=== PATIENT | male | born 1975 | race Caucasian/White ===

== ENCOUNTER → 2021-11-14 06:54 | Outpatient (CLI) | payer OTHER, SELFPAY ==
--- NOTE | ~2021-11-14 | MR_ITS ---
EXAMINATION: MR lumbar spine wo con EXAM DATE: 11/14/2021 07:35 INDICATION: Low back pain TECHNIQUE: Multi-sequential, multiplanar MR images of the lumbar spine were obtained without contrast . Sagittal T1, T2, T2 fat saturation images. Axial T2 weighted images. There is no prior study for comparison. FINDINGS: There is posterior fusion at L4-5, moderate disc disease at this level. Mild disc disease a t L3-4 and L5-S1. L4 laminectomies. Paraspinal soft tissue is unremarkable. There are no suspicious m arrow signal abnormalities. There is 2-3 mm anterolisthesis L4 on L5. Level by level evaluation: T12-L1: Disc does not extend beyond the endplate margin. Facet arthropathy: None. Neural foraminal stenosis: No stenosis. Central canal stenosis: No stenosis. L1-L2: Disc does not extend beyond the endplate margin. Facet arthropathy: Mild. Neural foraminal stenosis: No stenosis. Central canal stenosis: No stenosis. L2-L3: Disc does not extend beyond the endplate margin. Facet arthropathy: Mild to moderate. Neural foraminal stenosis: No stenosis. Central canal stenosis: No stenosis. L3-L4: There is a moderate diffuse disc bulge. Facet arthropathy: Moderate. Neural foraminal stenosis: Moderate left, mild to moderate right. Central canal stenosis: Mild to moderate. L4-L5: There is a moderate diffuse disc bulge. Facet arthropathy: Moderate but fused. Neural foraminal stenosis: Moderate right, mild left. Central canal stenosis: Mild, posterior decompression. L5-S1: Disc does not extend beyond the endplate margin. Facet arthropathy: Mild to moderate. Neural foraminal stenosis: Mild bilateral. Central canal stenosis: No stenosis. IMPRESSION: 1. L4-5 posterior fusion, grade 1 anterolisthesis, moderate disc bulge and right neural foraminal st enosis. 2. Less spondylosis other levels. Reviewed, dictated and finalized at location B. [employer] IMPRESSION: 1. L4-5 posterior fusion, grade 1 anterolisthesis, moderate disc bulge and rig ht neural foraminal stenosis. 2. Less spondylosis other levels.
== END ==
PROVIDERS: PCP Internal Medicine; Visit Provider Internal Medicine
DX: M51.26 Other intervertebral disc displacement, lumbar region (principal); Z98.1 Arthrodesis status
CPT/HCPCS: 72148

== ENCOUNTER 2022-03-08 06:51 | Outpatient (CLI) | payer BC, SELFPAY ==
--- NOTE | 2022-03-02 14:40 | PC.NURSE ---
Pre Radiology instructions Report to the Outpatient Waiting Room, entrance under the green pavilion located off [facility], at time 0700 on date 03/08/22. Procedure Time: 0900. One visitor will be allowed to accompany the patient into the hospital. The visitor will be instructed to remain with patient at all times or leave the building. We will allow the visitor to come back to the postoperative area when patient is ready. You and your visitor will be asked a series of questions to screen for COVID 19 for your protection. A mask is required within the hospital. Patients are to have no food or drink 6 hours prior to procedure time Driving will be restricted after the procedure, you must have a person to drive you home. Labs will be drawn in preop area and once reviewed, you will be taken to radiology area for procedure. When the procedure is completed, you will be taken to outpatient where you will be monitored for several hours. You may have one visitor in this area. Other than holding anti-coagulants, patient may take other medication(s) as scheduled. Prior to your appointment date patients are instructed to hold anti-coagulants after discussing with ordering provider to stop. If unable to discontinue anti-coagulants please notify radiologist. No aspirin or warfarin (Coumadin) for 7 days prior to the procedure. No clopidogrel (Plavix), ticagrelor (Brilinta), prasugrel (Effient) or dabigatran (Pradaxa) for 5 days prior to the procedure. No rivaroxaban (Xarelto), apixaban (Eliquis), dipyridamole (Aggrenox or Persantine) or cilostazol (Pletal) for 2 days prior to the procedure. Medications to discontinue per physician: N/A Date to take last dose: N/A Please leave all valuables, including medications, at home the day of procedure. The hospital will not accept responsibility for valuables. Wear comfortable, loose fitting clothing. Follow any additional instructions given to you from ordering provider. Telephone instructions given to PRINCE YOUNG and asked if any additional questions and then verbalized understanding. Patient advised to call scheduling provider office or registration scheduling [phone] if any additional questions.
[2022-03-02 14:41] VITALS: BMI 39.6
[2022-03-08] VITALS (7 sets, daily range): BP systolic 120–135; BP diastolic 78–85; PULSE 54–86; RESP 12–14; TEMP 36.2; O2SAT 96–100; BMI 40.1
--- NOTE | ~2022-03-08 | XR_ITS ---
EXAMINATION: 1. CT lumbar spine w con 2. XR myelogram spine lumbosacral DATE: 03/08/2022 10:36 INDICATION: lumbar spine MRI 11/14/21 TECHNIQUE: The procedure including the risks, benefits, and alternatives was discussed with the patie nt. Risks discussed included spinal headache, bleeding, and infection. The patient understood the ris ks and agreed to proceed. A timeout was performed to verify the patient's name, date of , and procedure to be performed. The skin overlying the L2-L3 and L4 levels was prepped and draped in usu al sterile fashion. Subcutaneous 1% lidocaine was used for local anesthesia. A 22 gauge spinal need le was advanced under fluoroscopic guidance. The needle was removed and the entry site was cleaned an d dressed. There were no immediate complications. Fluoroscopy exposure time was 0.4 minutes. The tot al number of images was 9. Computed tomography (CT) of the lumbar spine was performed without intrave nous contrast. The dose-length product was 1206.07 mGy-cm. FINDINGS: XR MYELOGRAM SPINE LUMBAR: Real-time fluoroscopy demonstrates the needle at the L4 level. There are c hanges of posterior fusion procedure at L4-L5 with pedicle screws. There are indentations of the thec al sac that will be further described on the postmyelogram CT. POST-MYELOGRAM LUMBAR SPINE CT: There is a 3.1 cm cyst in left kidney. There is 3 mm anterolisthesis of L4 on L5. There are changes of posterior fusion procedure at L4-L5 with pedicle screws. There are lucencies around the right L4 screw and left L5 screw, consistent with loosening. There is moderately decreased disc height at L4-L5. The conus medullaris is at L1. The following disc levels are specifi jose luis discussed: L1-L2: The disc does not extend beyond the endplate margin. There is mild bilateral facet joint osteo arthritis. There is no neural foraminal stenosis. There is no central canal stenosis. L2-L3: The disc does not extend beyond the endplate margin. There is mild bilateral facet joint osteo arthritis. There is no neural foraminal stenosis. There is no central canal stenosis. L3-L4: The disc is bulging. There is mild bilateral facet joint osteoarthritis. There is mild bilater al neural foraminal stenosis. There is mild central canal stenosis. L4-L5: The disc is bulging. There is mild bilateral facet joint hypertrophy. There is moderate bilate ral neural foraminal stenosis. There is mild central canal stenosis. There is posterior decompression . L5-S1: The disc does not extend beyond the endplate margin. There is moderate bilateral facet joint o steoarthritis. There is no neural foraminal stenosis. There is no central canal stenosis. IMPRESSION: 1. Posterior fusion procedure at L4-L5 with lucency around the right L4 screw and left L5 screw, cons istent with loosening. 2. Moderate spondylosis at L4-L5 and mild spondylosis at other levels. Reviewed, dictated and finalized at location A. IMPRESSION: 1. Posterior fusion procedure at L4-L5 with lucency around the right L4 screw a nd left L5 screw, consistent with loosening. 2. Moderate spondylosis at L4-L5 and mild spondylosis at other levels.
[2022-03-08 07:36] LABS: Immature Platelet Fraction Pct 3.9 % (0.9-11.2); Platelet Count Result 155 k/mm3 (150-375)
[2022-03-08 07:59] LABS: Prothrombin Time 13.1 Seconds (11.1-14.7)
[2022-03-08 11:08] LABS: Glucose Point of Care 97 mg/dl (65-105)
== END 2022-03-08 12:27 | disposition home or self-care (01) ==
PROVIDERS: Radiology Diagnostic Radiology; PCP Internal Medicine; Referring Provider Neurological Surgery; Visit Provider Radiology Diagnostic Radiology
DX: M96.0 Pseudarthrosis after fusion or arthrodesis (principal); M96.1 Postlaminectomy syndrome, not elsewhere classified
CPT/HCPCS: 36415; 62304; 72132; 82948; 85049; 85055; 85610